=== PATIENT | female | born 1930 | race Caucasian/White ===

== ENCOUNTER 2018-08-11 06:04 | Emergency (ER) | payer OTHER, MEDICARE ==
[~2018-08-11] VITALS: Ht 170.2 cm; Wt 70.3 kg
[2018-08-11 06:09] VITALS: Ht 170.2 cm; Wt 70.3 kg
[2018-08-11 06:59] LABS: BASOPHIL % 0.3 % (0-2); PLATELET COUNT 241 x10^3mcL (130-400)
[2018-08-11 07:00] LABS: RED CELL DISTRIBUTION WIDTH 14.7 % (11.5-14.5)
[2018-08-11 07:05] LABS: CALCIUM 10.3 mg/dL (8.5-10.1); CARBON DIOXIDE 25.6 mmol/L (21-32); CHLORIDE SERUM 101 mmol/L (98-107); CREATININE SERUM 0.8 mg/dL (0.6-1.0); GLUCOSE SERUM 103 mg/dL (74-106); POTASSIUM SERUM 4.4 mmol/L (3.5-5.1); SODIUM SERUM 135 mmol/L (136-145)
[2018-08-11 07:11] LABS: ALBUMIN 3.8 g/dL (3.4-5.0); ALKALINE PHOSPHATASE 71 U/L (46-116); ALT/SGPT 19 U/L (14-59); AST/SGOT 19 U/L (15-37); BILIRUBIN TOTAL 0.7 mg/dL (0.20-1.00); LIPASE 161 IU/L (73-393); TOTAL PROTEIN, SERUM 8.1 g/dL (6.4-8.2)
[2018-08-11 09:38] VITALS: BP 147/71
== END 2018-08-11 09:38 | disposition home or self-care (01) ==
LOC: ED 06:04
PROVIDERS: Emergency Medicine
DX: T36.8X5A Adverse effect of other systemic antibiotics, initial encounter (principal); R10.13 Epigastric pain; R11.0 Nausea; I10 Essential (primary) hypertension; H35.30 Unspecified macular degeneration; G62.9 Polyneuropathy, unspecified; Z88.0 Allergy status to penicillin; Z88.2 Allergy status to sulfonamides; Z88.5 Allergy status to narcotic agent; Z88.1 Allergy status to other antibiotic agents; Y92.89 Other specified places as the place of occurrence of the external cause
CPT/HCPCS: 36415; Q0092; Q0162

== ENCOUNTER 2018-11-20 17:35 | Inpatient (IN) | payer OTHER, MEDICARE ==
[~2018-11-20] VITALS: Ht 170.2 cm; Wt 76.8 kg
[2018-11-20 17:42] VITALS: Ht 170.2 cm; Wt 76.8 kg
[2018-11-20 18:55] LABS: BASOPHIL % 0.2 % (0-2); PLATELET COUNT 240 x10^3mcL (130-400); RED CELL DISTRIBUTION WIDTH 14.4 % (11.5-14.5)
[2018-11-20 19:10] LABS: CARBON DIOXIDE 27.4 mmol/L (21-32); CHLORIDE SERUM 101 mmol/L (98-107); GLUCOSE SERUM 105 mg/dL (74-106); SODIUM SERUM 137 mmol/L (136-145)
[2018-11-20 19:14] LABS: ALKALINE PHOSPHATASE 64 U/L (46-116); ALT/SGPT 17 U/L (14-59); AMYLASE 58 U/L (25-115); AST/SGOT 17 U/L (15-37); BILIRUBIN TOTAL 0.49 mg/dL (0.20-1.00); LIPASE 125 IU/L (73-393); MAGNESIUM 1.3 mg/dL (1.8-2.4); TOTAL PROTEIN, SERUM 6.9 g/dL (6.4-8.2)
[2018-11-20 20:53] LABS: microscopic required? YES; urine erythrocyte TRACE (NEGATIVE)
[2018-11-20 22:03] LABS: CHOLESTEROL/HDL RATIO 2.9
[2018-11-20 23:17] VITALS: BP 162/83
[2018-11-21 02:00] VITALS: BP 152/71
[2018-11-21 05:28] VITALS: BP 153/75
[2018-11-21 06:47] LABS: CALCIUM 8.8 mg/dL (8.5-10.1); CARBON DIOXIDE 27.9 mmol/L (21-32); CHLORIDE SERUM 103 mmol/L (98-107); CREATININE SERUM 1.1 mg/dL (0.6-1.0); GLUCOSE SERUM 144 mg/dL (74-106); MAGNESIUM 2.2 mg/dL (1.8-2.4); PHOSPHOROUS 3.3 mg/dL (2.5-4.9); POTASSIUM SERUM 4.7 mmol/L (3.5-5.1); SODIUM SERUM 135 mmol/L (136-145)
[2018-11-21 07:28] LABS: BASOPHIL % 0 % (0-2); PLATELET COUNT 230 x10^3mcL (130-400); RED CELL DISTRIBUTION WIDTH 14.6 % (11.5-14.5)
[2018-11-21 08:00] VITALS: BP 159/75
[2018-11-21 18:35] VITALS: BP 166/70
[2018-11-22 05:50] VITALS: BP 176/91
[2018-11-22 07:05] LABS: BASOPHIL % 0.3 % (0-2); CALCIUM 9.7 mg/dL (8.5-10.1); CARBON DIOXIDE 26.5 mmol/L (21-32); CHLORIDE SERUM 105 mmol/L (98-107); CREATININE SERUM 1.1 mg/dL (0.6-1.0); GLUCOSE SERUM 101 mg/dL (74-106); PLATELET COUNT 278 x10^3mcL (130-400); POTASSIUM SERUM 3.7 mmol/L (3.5-5.1); RED CELL DISTRIBUTION WIDTH 14.4 % (11.5-14.5); SODIUM SERUM 143 mmol/L (136-145)
[2018-11-22 09:30] VITALS: BP 174/74
[2018-11-22] MEDS ORDERED: NOR5 PO (11:39)
[2018-11-22] MEDS ORDERED: BENAZEPRIL HYDRO5 M1 PO (11:40)
[2018-11-22] MEDS ORDERED: LASIX20 MG PO (11:40)
[2018-11-22] MEDS ORDERED: LEVOTHYROXIN0.075 M2 PO (11:41)
[2018-11-22] MEDS ORDERED: OXYBUTYNIN CHLOR5 MG PO (11:41)
[2018-11-22 16:10] VITALS: BP 157/68
[2018-11-22 20:21] VITALS: BP 168/75
[2018-11-23 05:47] VITALS: BP 149/89
[2018-11-23 06:18] LABS: BASOPHIL % 0.2 % (0-2); PLATELET COUNT 277 x10^3mcL (130-400); RED CELL DISTRIBUTION WIDTH 14.4 % (11.5-14.5)
[2018-11-23 06:35] LABS: CARBON DIOXIDE 28.2 mmol/L (21-32); CHLORIDE SERUM 104 mmol/L (98-107); CREATININE SERUM 1.2 mg/dL (0.6-1.0); GLUCOSE SERUM 103 mg/dL (74-106); POTASSIUM SERUM 4.4 mmol/L (3.5-5.1); SODIUM SERUM 143 mmol/L (136-145)
[2018-11-23 09:25] VITALS: BP 138/78
[2018-11-23] MEDS ORDERED: DOXYCYCLINE HY100 MG PO (11:05)
[2018-11-23] MEDS ORDERED: LAC PO (11:06)
[2018-11-23 12:46] VITALS: BP 138/78
== END 2018-11-23 13:32 | disposition home or self-care (01) | DRG 689 ==
LOC: ED 17:35 → MU 21:38
PROVIDERS: Emergency Medicine; Family Medicine; ADMIT Internal Medicine
DX: N39.0 Urinary tract infection, site not specified (principal); N17.0 Acute kidney failure with tubular necrosis; E44.0 Moderate protein-calorie malnutrition; E86.0 Dehydration; M54.31 Sciatica, right side; R73.03 Prediabetes; E83.42 Hypomagnesemia; E78.5 Hyperlipidemia, unspecified; Z96.642 Presence of left artificial hip joint; Z96.652 Presence of left artificial knee joint; Z68.30 Body mass index [BMI] 30.0-30.9, adult
CPT/HCPCS: G0378; J0696; J1200; J1885; J2930; J3475; J3490; J7030

== ENCOUNTER 2018-12-29 02:12 | Emergency (ER) | payer OTHER, MEDICARE ==
[~2018-12-29] VITALS: Ht 170.2 cm; Wt 70.3 kg
[~2018-12-29 02:12] MED LIST: BENAZEPRIL HYDRO5 M1 PO; DOXYCYCLINE HY100 MG PO; LAC PO; LASIX20 MG PO; LEVOTHYROXIN0.075 M2 PO; NOR5 PO; OXYBUTYNIN CHLOR5 MG PO
[2018-12-29 02:17] VITALS: Ht 170.2 cm; Wt 70.3 kg
[2018-12-29 03:14] LABS: BASOPHIL % 0.5 % (0-2); PLATELET COUNT 231 x10^3mcL (130-400)
[2018-12-29 03:17] LABS: CALCIUM 9.9 mg/dL (8.5-10.1); CHLORIDE SERUM 107 mmol/L (98-107); CREATININE SERUM 1.1 mg/dL (0.6-1.0); GLUCOSE SERUM 103 mg/dL (74-106); POTASSIUM SERUM 4.5 mmol/L (3.5-5.1); RED CELL DISTRIBUTION WIDTH 14.6 % (11.5-14.5); SODIUM SERUM 143 mmol/L (136-145)
[2018-12-29 03:21] LABS: ALKALINE PHOSPHATASE 68 U/L (46-116); ALT/SGPT 20 U/L (14-59); AST/SGOT 20 U/L (15-37); BILIRUBIN TOTAL 0.51 mg/dL (0.20-1.00); LIPASE 209 IU/L (73-393); TOTAL PROTEIN, SERUM 7.2 g/dL (6.4-8.2)
[2018-12-29 03:51] LABS: ALBUMIN 3.3 g/dL (3.4-5.0)
[2018-12-29 06:01] LABS: UA SPECIFIC GRAVITY 1.015 (1.005-1.035); microscopic required? YES; urine erythrocyte TRACE (NEGATIVE)
[2018-12-29 06:44] VITALS: BP 117/71
== END 2018-12-29 06:44 | disposition home or self-care (01) ==
LOC: ED 02:12
PROVIDERS: Emergency Medicine
DX: N39.0 Urinary tract infection, site not specified (principal); R11.2 Nausea with vomiting, unspecified; I10 Essential (primary) hypertension; Z88.0 Allergy status to penicillin; Z88.1 Allergy status to other antibiotic agents; Z88.2 Allergy status to sulfonamides; Z88.5 Allergy status to narcotic agent
CPT/HCPCS: J1885; J2405; J7030; Q0092